=== PATIENT | male | born 1965 | race Hispanic/Latino ===

== ENCOUNTER 2017-07-03 02:45 | Observation (INO) | payer SELFPAY ==
[2017-07-03 03:43] LABS: BASO # 0.1 K/uL (0.0-0.2); BASO % 1.1 % (0.0-2.0); EOS # 0.3 K/uL (0.0-0.7); EOS % 3.5 % (0.0-4.0); HEMATOCRIT 41.2 % (35.0-51.0); LYMPH # 3.7 K/uL (1.0-4.3); LYMPH % 49.8 % (20.0-40.0); MEAN CELL VOLUME 88.9 fl (80.0-94.0); MEAN CORPUSCULAR HEMOGLOBIN 31.3 pg (27.0-31.0); MEAN CORPUSCULAR HGB CONC 35.2 g/dL (33.0-37.0); MONO # 0.4 K/uL (0.0-0.8); MONO % 5.4 % (0.0-10.0); NEUT % 40.2 % (50.0-75.0); NRBC % 0.2 % (0.0-0.0); RED CELL DISTRIBUTION WIDTH 12.4 % (11.5-14.5); WHITE BLOOD COUNT 7.4 K/uL (4.8-10.8)
[2017-07-03 03:54] LABS: ALB/GLOB RATIO 1.5 (1.0-2.1); ALKALINE PHOSPHATASE 78 U/L (38-126); ALT/SGPT 55 U/L (21-72); AST/SGOT 48 U/L (17-59); BILIRUBIN,TOTAL 0.4 mg/dl (0.2-1.3); BLOOD UREA NITROGEN 16 mg/dl (9-20); CARBON DIOXIDE 21 mmol/L (22-30); CHLORIDE 105 mmol/L (98-107); GFR AFRICAN-AMERICAN > 60; GLUCOSE,RANDOM 117 mg/dL (75-110); POTASSIUM 3.6 MMOL/L (3.6-5.0); SODIUM 140 mmol/l (132-148); TOTAL PROTEIN 7.3 G/DL (6.3-8.2)
[2017-07-03 04:17] LABS: ALCOHOL SERUM 314 mg/dl (0-10)
--- NOTE | 2017-07-03 04:47 | ED PDOC ---
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 EMS states that patient's girlfriend called 911 when the patient texted "help" and then did not respond to any subsequent calls/texts. Patient admits to drinking 12 beers today but denies all medical complaints. (-) suicidal/homicidal ideations or hallucinations. PCP: MICAH Past Medical History Reviewed: Historical Data, Nursing Documentation, Vital Signs Vital Signs: Last Vital Signs Temp 98.2 F 07/03/17 02:59 Pulse 78 07/03/17 02:59 Resp 18 07/03/17 02:59 BP 138/70 07/03/17 02:59 Pulse Ox 95 07/03/17 02:59 - Medical History PMH: Anxiety - Surgical History Surgical History: No Surg Hx - Family History Family History: States: No Known Family Hx - Social History Alcohol: Social - Allergies Allergies/Adverse Reactions: Allergies Allergy/AdvReac Type Severity Reaction Status Date / Time No Known Allergies Allergy Verified 07/03/17 02:59 Review of Systems ROS Statement: Except As Marked, All Systems Reviewed And Found Negative ( Patient denies all medical complaints) Physical Exam - Reviewed Nursing Documentation Reviewed: Yes Vital Signs Reviewed: Yes - Physical Exam Appears: Positive for: Well, Non-toxic, No Acute Distress (alcohol on breath) Head Exam: Positive for: ATRAUMATIC, NORMAL INSPECTION, NORMOCEPHALIC Skin: Positive for: Normal Color, Warm, Dry. Negative for: Rash Eye Exam: Positive for: Normal appearance, EOMI, PERRL ENT: Positive for: Normal ENT Inspection Neck: Positive for: Normal, Painless ROM, Supple Cardiovascular/Chest: Positive for: Regular Rate, Rhythm. Negative for: Murmur Respiratory: Positive for: Normal Breath Sounds. Negative for: Respiratory Distress Gastrointestinal/Abdominal: Positive for: Normal Exam, Soft. Negative for: Tenderness Back: Positive for: Normal Inspection. Negative for: Vertebral Tenderness Extremity: Positive for: Normal ROM. Negative for: Deformity Neurologic/Psych: Positive for: Alert, Oriented, Gait (unsteady), Other ( slurred speech). Negative for: Motor/Sensory Deficits, Aphasia, Facial Droop - Laboratory Results Result Diagrams: 07/03/17 03:40 07/03/17 03:40 - ECG O2 Sat by Pulse Oximetry: 95 (RA) Pulse Ox Interpretation: Normal Medical Decision Making Medical Decision Makin Initial impression: EtOH intoxication Initial plan: * EtOH serum * Labs * UDrug * Crisis eval * Ativan 2mg IM * Haldol 5mg IM * 1:1 OBS * UA Patient initially uncooperative and attempted to leave ED. Patient eventually calmed down. Ativan and Haldol ordered, not administered. 0333 * ED OBS ADMISSION All further documentation will take place in ED OBS note. Scribe Attestation: Documented by Johanny Babcock acting as a scribe for Ed Finn MD. Scribe Attestation: All medical record entries made by the Scribe were at my direction and personally dictated by me. I have reviewed the chart and agree that the record accurately reflects my personal performance of the history, physical exam, medical decision making, and the department course for this patient. I have also personally directed, reviewed, and agree with the discharge instructions and disposition. ED OBSERVATION Date of observation admission: 07/03/17 Time of observation admission: 03:33 - Observation admission statement Patient is being placed in observation because:: pending crisis eval and because of alcohol intoxication - Goals of Observation Goals of observation are:: clinical sobriety and diagnosis - Progress Note Progress Note: 07/03/17 05:00 Patient resting comfortably. Vitals stable. Disposition - Clinical Impression Clinical Impression: Alcohol intoxication - Patient ED Disposition Is Patient to be Admitted: Transfer of Care (Signed out to Dr. Finn pending crisis eval and disposition) - Disposition Disposition Time: 06:00 Condition: STABLE - Pt Status Changed To: Hospital Disposition Of: Observation (ED OBS)
[2017-07-03 05:19] LABS: RBC URINE < 1 /hpf (0-3); URINE BILIRUBIN NEGATIVE (NEGATIVE); URINE BLOOD NEGATIVE (NEGATIVE); URINE COLOR STRAW (YELLOW); URINE GLUCOSE (UA) NEG (Normal); URINE KETONE NEGATIVE (NEGATIVE); URINE LEUKOCYTE ESTERASE NEG Leu/uL (Negative); URINE PROTEIN NEGATIVE (NEGATIVE); URINE UROBILINOGEN 0.2-1.0 mg/dL (0.2-1.0); WBC URINE < 1 /hpf (0-5)
--- NOTE | 2017-07-03 06:02 | ED PDOC ---
- Laboratory Results Result Diagrams: 07/03/17 03:40 07/03/17 03:40 - ECG O2 Sat by Pulse Oximetry: 95 (RA) Medical Decision Making Medical Decision Makin Patient signed out to me from JAIME Michael pending sobriety and crisis evaluation. Patient is in ED OBS. Scribe Attestation: Documented by Johanny Babcock acting as a scribe for Ed Finn MD. MD Scribe Attestation: All medical record entries made by the Scribe were at my direction and personally dictated by me. I have reviewed the chart and agree that the record accurately reflects my personal performance of the history, physical exam, medical decision making, and the department course for this patient. I have also personally directed, reviewed, and agree with the discharge instructions and disposition. Disposition - Clinical Impression Clinical Impression: Alcohol intoxication, Anxiety - POA Present On Arrival: None - Disposition Disposition: Transfer of Care Disposition Time: 07:33 Condition: STABLE Patient Signed Over To: James Roldan (at 0700 07/03/2017) Handoff Comments: pending crisis evaluation and clinical sobriety ED OBSERVATION Date of observation admission: 07/03/17 Time of observation admission: 03:33 - Observation admission statement Patient is being placed in observation because:: pending crisis eval and sobriety - Goals of Observation Goals of observation are:: diagnosis and clinical sobriety - Progress Note Progress Note: 07/03/17 06:02 Patient resting comfortably. Vitals stable. pending crisis. 07/03/17 07:00 Patient will be signed out to Dr. Roldan pending crisis eval and clinical sobriety.
--- NOTE | 2017-07-03 09:24 | ED PDOC ---
- Laboratory Results Result Diagrams: 07/03/17 03:40 07/03/17 03:40 - ECG O2 Sat by Pulse Oximetry: 95 (RA) Pulse Ox Interpretation: Normal - Progress ED Course And Treament: pt has no complaints no signs of clinical intoxication, pt denies any si/hi/ depression, pt seen and eval by preparation room worker and cleared for discharge by dr odell. pt agree's with plan and leaves ambulatory and in good spirits with a steady gait. Re-evaluation Time: 09:22 Condition: Improved Disposition Counseled Patient/Family Regarding: Studies Performed, Diagnosis, Need For Followup - Clinical Impression Clinical Impression: Alcohol intoxication, Anxiety - POA Present On Arrival: None - Disposition Disposition: Routine/Home Disposition Time: 09:24 Condition: GOOD
[2017-07-03 09:31] VITALS: BP 116/77; PULSE 71; RESP 16; TEMP 97.7
[2017-07-04 11:25] VITALS: O2SAT 95
== END 2017-07-03 09:52 | disposition home or self-care (01) ==
LOC: H.ER 02:45 → H.EROBSV 03:33
PROVIDERS: ADMIT Emergency Medicine; ATTEND Emergency Medicine
DX: F10.129 Alcohol abuse with intoxication, unspecified (principal); F41.9 Anxiety disorder, unspecified; Y90.8 Blood alcohol level of 240 mg/100 ml or more
CPT/HCPCS: 80053; 81003; 85025; G0378; G0480